=== PATIENT | male | born 1960 | race Caucasian/White ===

== ENCOUNTER 2016-09-24 06:30 | Day surgery (SDC) | payer BC, OTHER ==
[~2016-09-24 06:30] MED LIST: Lactated Ringers 1,000 ML IV SCH; ceFAZolin 2 GM in Premix Bag 1 BAG IV SCH
--- NOTE | 2016-09-24 07:08 | PCM.PREANE ---
Preanesthetic Assessment - Anesthesia/Transfusion/Family Hx Anesthesia History: Prior Anesthesia Without Reaction Family History of Anesthesia Reaction: No Transfusion History: No Prior Transfusion(s) - Review of Systems General: No Symptoms Pulmonary: No Symptoms Cardiovascular: No Symptoms Gastrointestinal: No symptoms Neurological: No Symptoms Other: Reports: None - Physical Assessment Height: 1.83 m Weight: 104.326 kg ASA Class: 2 Mental Status: Alert & Oriented x3 Airway Class: Mallampati = 2 Dentition: Reports: [place](s) (up front), Bridge (upper front/right) Thyro-Mental Finger Breadths: 3 Mouth Opening Finger Breadths: 2 ROM/Head Extension: Full Lungs: Clear to auscultation, Normal respiratory effort Cardiovascular: Regular Rate, Regular Rhythm - Allergies Allergies/Adverse Reactions: Allergies Allergy/AdvReac Type Severity Reaction Status Date / Time No Known Allergies Allergy Verified 09/21/16 10:39 - Blood Blood Available: No - Anesthesia Plan Pre-Op Medication Ordered: None - Acknowledgements Anesthesia Type Planned: General Anesthesia Pt an Appropriate Candidate for the Planned Anesthesia: Yes Alternatives and Risks of Anesthesia Discussed w Pt/Guardian: Yes Pt/Guardian Understands and Agrees with Anesthesia Plan: Yes PreAnesthesia Questionnaire HEENT History: Reports: Other (See Below) Other HEENT History: wears glasses Cardiovascular History: Reports: High Cholesterol, Hypertension Gastrointestinal History: Reports: Helicobacter Pylori Genitourinary History: Reports: Renal Calculus Neurological History: Reports: Concussion Endocrine/Metabolic History: Reports: Obesity/BMI 30+ - Past Surgical History Head Surgeries/Procedures: Reports: None HEENT Surgical History: Reports: Tonsillectomy Male Surgical History: Reports: Lithotripsy (ESWL) Other Male Surgeries/Procedures: hx vasectomy, ESWL, and vasectomy reversal Musculoskeletal Surgical History: Reports: Arthroscopic Knee - SUBSTANCE USE Smoking Status *Q: Never Smoker Recreational Drug Use History: No - HOME MEDS Home Medications: Home Meds Aspirin [Sebree Aspirin] 81 mg PO DAILY 09/21/16 [History] Fish Oil/[place]-3 Fatty Acids [Fish Oil 1,000 MG] 1 oz PO DAILY 09/21/16 [History ] Garlic 1 tab PO DAILY 09/21/16 [History] Gluc HCl/Csa/Kalia Hy/Hyalur Ac [Glucosamine Chondroitin] 1 tab PO DAILY [History] Hydrochlorothiazide 25 mg PO DAILY 09/21/16 [History] Loratadine [Claritin] 10 mg PO ASDIRECTED PRN 09/21/16 [History] - CURRENT (IN HOUSE) MEDS Current Meds: Current Medications Lactated Ringer's (Ringers, Lactated) 1,000 mls @ 125 mls/hr IV ASDIRECTED SHU Cefazolin Sodium/Dextrose 2 gm (/ Premix) 50 mls @ 100 mls/hr IV ONETIME SHU
[2016-09-24] MEDS ORDERED: ceFAZolin 1 GM Vial ONE (07:14)
[2016-09-24] MEDS ORDERED: Bupivacaine 0.5% 10 ML SDV ONE (07:14)
[2016-09-24] MEDS ORDERED: Propofol 200 MG/20 ML SDV ONE (07:25)
[2016-09-24] MEDS ORDERED: Lidocaine 2% 5 ML SDV ONE (07:25)
[2016-09-24] MEDS ORDERED: fentaNYL 250 MCG/5 ML SDV ONE (07:25)
[2016-09-24] MEDS ORDERED: fentaNYL 100 MCG/2 ML SDV ONE (07:25)
[2016-09-24] MEDS ORDERED: Midazolam 1 MG/ML 2 ML SDV ONE (07:25)
[2016-09-24] MEDS ORDERED: Rocuronium 10 MG/ML 10 ML Syringe ONE (07:26)
[2016-09-24] MEDS ORDERED: Ondansetron 4 MG/2 ML SDV ONE (07:26)
[2016-09-24] MEDS ORDERED: Neostigmine Methylsulfate 1 MG/ML 5 ML Syringe ONE (07:26)
[2016-09-24] MEDS ORDERED: Ketorolac 30 MG/ML SDV ONE (07:26)
[2016-09-24] MEDS ORDERED: ePHEDrine 50 MG/ML SDV ONE (08:09)
[2016-09-24] MEDS ORDERED: HYDROmorphone 2 MG/ML Syringe IVPUSH ONE (08:21)
[2016-09-24] MEDS ORDERED: fentaNYL 100 MCG/2 ML SDV IVPUSH PRN (08:21)
[2016-09-24] MEDS ORDERED: Acetaminophen/HYDROcodone 325-5 MG Tab PO PRN (09:17)
[2016-09-24] MEDS ORDERED: Morphine 10 MG/ML Syringe IVPUSH PRN (09:17)
--- NOTE | 2016-09-24 09:19 | PCM.OPNOTE ---
- General Post-Op/Procedure Note Date of Surgery/Procedure: 09/24/16 Operative Procedure(s): Repair reducible right inguinal hernia with small Bard PerFix plug and patch Pre Op Diagnosis: Reducible right inguinal hernia Post-Op Diagnosis: Same Anesthesia Technique: General ET tube (ASA II) Primary Surgeon: Mynor Oropeza Fluid Replacement, Intraop: 11,100 EBL in mLs: 5 Condition: Good Free Text/Narrative:: Dictation [id number] CPT code: 80248
[2016-09-24] MEDS ORDERED: Lactated Ringers 1,000 ML IV SCH (09:30)
--- NOTE | 2016-09-24 09:45 | PCM.POSTAN ---
POST ANESTHESIA ASSESSMENT - MENTAL STATUS Mental Status: alert, oriented - RESPIRATORY Respiratory Status: respiratory rate WNL, airway patent, O2 saturation stable - CARDIOVASCULAR CV Status: pulse rate WNL - GASTROINTESTINAL GI Status: no symptoms - PAIN Pain Score: 2 - POST OP HYDRATION Hydration Status: adequate & stable - OBSERVATIONS Free Text/Narrative:: no anesthesia problems
[2016-09-24 10:34] VITALS: BP 134/73
--- NOTE | 2016-09-24 13:37 | OR ---
SURGEON: Mynor Oropeza M.D. DATE OF PROCEDURE: 09/24/2016 PROCEDURE PERFORMED: Repair of reducible right inguinal hernia with small Bard PerFix plug and patch. ANESTHESIA: General endotracheal. ASA CLASSIFICATION: II PREOPERATIVE DIAGNOSIS: Reducible right inguinal hernia. POSTOPERATIVE DIAGNOSIS: Reducible right inguinal hernia. ESTIMATED BLOOD LOSS: 5 mL. INTRAOPERATIVE FLUID REPLACEMENT: 1100 mL of crystalloid. DESCRIPTION OF PROCEDURE: The patient was taken to the operating room and placed on the operating table in the supine position. Time-out was called for appropriate identification of the patient and procedure. The surgical site had been marked prior to the patient entering the operating room. Thigh-high TEDs and sequential compression boots were placed. Following satisfactory attainment of general endotracheal anesthesia, the abdomen was prepped with DuraPrep solution and sterile drapes were applied. The skin incision was marked out in the right inguinal crease and then infiltrated with 10 mL of 0.5% Marcaine solution. A skin incision was made and deepened through the subcutaneous tissue obtaining hemostasis with the use of electrocautery. Larger vessels were ligated with 3-0 Vicryl ties. Dissection was carried down to the external oblique fascia that was opened in the direction of its fibers. The cord was then mobilized, the hernia sac identified, and dissected away from the cord. The cord was then encircled with a Jose Cruz drain. Once the hernia sac and lipoma were reduced, a small Bard PerFix plug and patch was brought to the operating table. This was soaked in 1% Ancef solution. The plug was placed into the internal ring and secured with an 0 Ethibond suture. The patch was placed over this, and the repair carried out from medial to lateral. Medially and inferiorly, sutures were placed from Minh's ligament and inguinal ligament to the Marlex mesh and superiorly from the mesh to the transversalis fascia. All sutures were placed under direct vision and held with hemostats until the final sutures had been placed. The wings of the patch were brought around the cord and secured laterally with an 0 Ethibond suture. All sutures were tied down. The patient was given a Valsalva maneuver to 54 cm of water. There was no evidence of recurrence of the hernia. The wound was then irrigated with 1% Ancef solution. The cord was returned to its anatomic location. The external oblique was repaired with running 3-0 Polysorb. Lon's fascia was closed with running 3-0 Polysorb. The skin edges were reapproximated with subcuticular 4-0 Monocryl and reinforced with Steri- Strips. Sterile Tegaderm pad was placed as a dressing. Sponge, needle, and instrument counts were all correct. The patient tolerated the procedure well. Following emergence from anesthesia and extubation, he was taken to recovery room in stable condition. LIAT DUKES /[id number]
== END 2016-09-24 10:57 | disposition home or self-care (01) ==
LOC: MW.SDS 06:30
PROVIDERS: ATTEND Surgery
PROC: 0YU50JZ Supplement Right Inguinal Region with Synthetic Substitute, Open Approach (ICD-10-PCS; principal; 2016-09-24)
DX: K40.90 Unilateral inguinal hernia, without obstruction or gangrene, not specified as recurrent (principal); I10 Essential (primary) hypertension; E78.00 Pure hypercholesterolemia, unspecified; E66.9 Obesity, unspecified; Z87.442 Personal history of urinary calculi; Z98.52 Vasectomy status; Z90.89 Acquired absence of other organs; Z98.890 Other specified postprocedural states; Z79.899 Other long term (current) drug therapy; Z79.82 Long term (current) use of aspirin
CPT/HCPCS: 49505; C1781; J0690; J1885; J2250; J2405; J3010; J7120; 01830; J2704

== ENCOUNTER 2022-07-21 06:41 | Inpatient (IN) | payer OTHER ==
[~2022-07-21 06:41] MED LIST changes: +Famotidine 20 MG/2 ML SDV IVPUSH SCH; +Scopolamine 1.5 MG Transdermal Patch TRDERM SCH; -ceFAZolin 2 GM in Premix Bag 1 BAG IV SCH
[2022-07-21] MEDS ORDERED: Ropivacaine 49.25 ML, Ketorolac 30 MG, EPINEPHrine 0.5 MG, cloNIDine 80 MCG in Sodium C... INJECT SCH (07:00)
[2022-07-21] MEDS ORDERED: Tranexamic Acid 1,000 MG in Sodium Chloride 0.9% 100 ML IV ONE (07:00)
[2022-07-21] MEDS ORDERED: Famotidine 20 MG/2 ML SDV ONE (07:10)
[2022-07-21] MEDS ORDERED: Bupivacaine 0.5% 30 ML SDV ONE (07:24)
[2022-07-21] MEDS ORDERED: Dexmedetomidine 200 MCG/2 ML SDV ONE (07:26)
[2022-07-21] MEDS ORDERED: Propofol 200 MG/20 ML SDV ONE ×2 (07:26→09:26)
[2022-07-21] MEDS ORDERED: Water For Injection, Sterile 20 ML ONE (07:26)
[2022-07-21] MEDS ORDERED: Midazolam 1 MG/ML 2 ML SDV ONE (07:46)
[2022-07-21] MEDS ORDERED: ceFAZolin 2 GM in Premix Bag 1 BAG IV SCH (08:00)
[2022-07-21] MEDS ORDERED: Metoclopramide 10 MG/2 ML SDV IVPUSH PRN (08:00)
[2022-07-21] MEDS ORDERED: fentaNYL 50 MCG/ML SDV IVPUSH PRN (08:00)
[2022-07-21] MEDS ORDERED: HYDROmorphone 1 MG/ML Syringe IVPUSH PRN (08:00)
[2022-07-21] MEDS ORDERED: Naloxone 0.4 MG/ML SDV IVPUSH PRN (08:00)
[2022-07-21] MEDS ORDERED: Ondansetron 4 MG/2 ML SDV IVPUSH PRN ×2 (08:00→10:26)
[2022-07-21] MEDS ORDERED: Morphine 2 MG/ML SYRINGE IVPUSH PRN ×2 (08:00→10:26)
[2022-07-21] MEDS ORDERED: Albuterol 0.083% 2.5 MG/3 ML Neb Soln NEB PRN (08:00)
[2022-07-21] MEDS ORDERED: ceFAZolin 2 GM Vial ONE (08:27)
[2022-07-21] MEDS ORDERED: Sodium Chloride 0.9% 10 ML Syringe FLUSH PRN (10:26)
[2022-07-21] MEDS ORDERED: oxyCODONE 5 MG Tab PO PRN ×2 (10:26→10:51)
[2022-07-21] MEDS ORDERED: Sodium Chloride 0.9% 2.5 ML Syringe FLUSH PRN (10:26)
[2022-07-21] MEDS ORDERED: Aluminum Hydroxide/Magnesium Hydroxide/Simethicone XS Susp 30 ML Cup PO PRN (10:26)
[2022-07-21] MEDS ORDERED: diphenhydrAMINE 25 MG Cap PO PRN (10:26)
[2022-07-21] MEDS ORDERED: traMADol 50 MG Tab PO PRN (10:49)
[2022-07-21] MEDS: Ketorolac 30 MG/ML SDV IVPUSH SCH ×3 (13:07→22:27)
[2022-07-21] MEDS: Acetaminophen 325 MG Tab PO SCH ×3 (14:47→22:25)
[2022-07-21 15:37] LABS: CARBON DIOXIDE,CO2 23.4 mmol/L (21.0-32.0); POTASSIUM,K 3.6 mmol/L (3.5-5.1)
[2022-07-21] MEDS: ceFAZolin 2 GM in Sodium Chloride 0.9% 100 ML IV SCH (16:23)
[2022-07-21] MEDS: Aspirin 325 MG Tab PO SCH (22:25)
[2022-07-21] MEDS: Docusate Sodium 100 MG Cap PO SCH (22:25)
[2022-07-22] MEDS: ceFAZolin 2 GM in Sodium Chloride 0.9% 100 ML IV SCH (00:03)
[2022-07-22] MEDS: traMADol 50 MG Tab PO PRN ×2 (00:13→08:47)
[2022-07-22] MEDS: Acetaminophen 325 MG Tab PO SCH ×3 (02:17→10:21)
[2022-07-22] MEDS: Ketorolac 30 MG/ML SDV IVPUSH SCH (04:50)
[2022-07-22 07:40] LABS: CARBON DIOXIDE,CO2 25.6 mmol/L (21.0-32.0)
[2022-07-22 08:25] VITALS: PULSE 63
[2022-07-22] MEDS: Aspirin 325 MG Tab PO SCH (08:46)
[2022-07-22] MEDS: Docusate Sodium 100 MG Cap PO SCH (08:46)
[2022-07-22] MEDS ORDERED: Lisinopril/Hydrochlorothiazide 10-12.5 MG Tab PO SCH (09:00)
[2022-07-22] MEDS ORDERED: Polyethylene Glycol 3350 Powder 17 GM Packet PO SCH (09:00)
[2022-07-22] MEDS ORDERED: Famotidine 20 MG Tab PO SCH (09:00)
[2022-07-22] MEDS ORDERED: Ibuprofen 800 MG Tab PO PRN (09:00)
[2022-07-22 13:40] VITALS: BP 132/62
== END 2022-07-22 14:40 | disposition home or self-care (01) | DRG 470 ==
LOC: MW.SDS 06:41 → MW.MS 10:30
PROVIDERS: ADMIT Orthopaedic Surgery; ATTEND Orthopaedic Surgery
PROC: 0SRC069 Replacement of Right Knee Joint with Oxidized Zirconium on Polyethylene Synthetic Substitute, Cemented, Open Approach (ICD-10-PCS; principal; 2022-07-21)
DX: M17.11 Unilateral primary osteoarthritis, right knee (principal); I10 Essential (primary) hypertension; R73.03 Prediabetes; H91.90 Unspecified hearing loss, unspecified ear; J30.9 Allergic rhinitis, unspecified; E78.00 Pure hypercholesterolemia, unspecified; Z79.82 Long term (current) use of aspirin; Z79.899 Other long term (current) drug therapy; Z87.442 Personal history of urinary calculi; Z90.89 Acquired absence of other organs; Z87.898 Personal history of other specified conditions; Z98.890 Other specified postprocedural states; Z98.52 Vasectomy status; Z87.891 Personal history of nicotine dependence
CPT/HCPCS: 01402; 36415; 64447; 73560-26-RT; 73560-RT; 80048; 83735; 85014; 85018; 85025; 86850; 86900; 86901; 97110-GP; 97161-GP; 97530-GP; 99221; A9270-GY; C1776; J0171; J0690; J0735; J1885; J2250; J2704; J2795; J3490; J7050; J7120

== ENCOUNTER 2022-07-23 21:06 | Emergency (ER) | payer OTHER ==
[2022-07-23 22:05] LABS: CARBON DIOXIDE,CO2 27.5 mmol/L (21.0-32.0); POTASSIUM,K 3.5 mmol/L (3.5-5.1)
[2022-07-24 00:03] VITALS: BP 153/89; PULSE 81
== END 2022-07-23 22:48 | disposition home or self-care (01) ==
LOC: MW.ED 21:06
DX: Z00.00 Encounter for general adult medical examination without abnormal findings (principal); R60.1 Generalized edema; E78.00 Pure hypercholesterolemia, unspecified; I10 Essential (primary) hypertension; Z79.899 Other long term (current) drug therapy; Z79.82 Long term (current) use of aspirin; Z86.16 Personal history of COVID-19
CPT/HCPCS: 36415; 80053; 85025; 93971-26-RT; 93971-RT; 99284

== ENCOUNTER 2022-07-27 09:38 | Emergency (ER) | payer OTHER ==
[2022-07-27] MEDS ORDERED: Sodium Chloride 0.9% 1,000 ML IV ONE (10:08)
[2022-07-27 11:26] LABS: CARBON DIOXIDE,CO2 25.1 mmol/L (21.0-32.0); POTASSIUM,K 3.9 mmol/L (3.5-5.1)
[2022-07-27 13:11] VITALS: BP 132/69; PULSE 72
== END 2022-07-27 13:10 | disposition home or self-care (01) ==
LOC: MW.ED 09:38
DX: E86.0 Dehydration (principal); I10 Essential (primary) hypertension; M19.90 Unspecified osteoarthritis, unspecified site; Z79.899 Other long term (current) drug therapy; Z79.82 Long term (current) use of aspirin; Z96.651 Presence of right artificial knee joint
CPT/HCPCS: 36415; 71045; 80053; 81001; 83605; 84484; 85025; 87086; 93005; 96360; 99284; J7030; 93010